=== PATIENT | female | born 1955 | race Caucasian/White ===

== ENCOUNTER → 2017-02-17 | Outpatient (CLI) | payer OTHER ==
[~2017-02-17] MED LIST: ACCOLATE10 MG; ADVAIRDISKUS; B12INJ; BIOTIN 800 MCG1 EACH PO; BRINTELLIX10 MG; BRINTELLIX10 MG PO; COZAAR 50 MG TA50 M2 PO; CYMBALTA30 MG PO; LANSOPRAZOLE30 MG PO; LISINOPRIL10 MG PO; LOSARTAN-HCTZ1 EAC3 PO; MIRALAX17 GM PO; MOBIC15 MG PO; MULTIVITAMINS PO; NEW ANTIDEPRESSANT; NEW HTN MED; NORVASC5 MG PO; OXYCODONE HCL 55 MG PO; OXYCODONE HCL5 M1 PO; OXYCODONE PO; PROAIR HFA8.5 GM IH; QUALAQUIN324 MG PO; TRAMADOL 50 MG50 MG PO; TRANSDERM-SCO1 PATC1 TD; VITAMIN B COMP1 EAC7 PO; ZANTAC PO; ZYRTEC 10 MG TA10 MG PO; biotin
== END ==
LOC: EDSTATUS 02-12 09:42 → SPEECH 02-12 12:03 → RAD 10:12
DX: R13.12 Dysphagia, oropharyngeal phase (principal)